=== PATIENT | male | born 1990 | race Caucasian/White ===

== ENCOUNTER 2023-01-14 21:53 | Emergency (ER) | payer OTHER ==
[2023-01-14 22:15] VITALS: TEMP 99.3
[2023-01-14] MEDS ORDERED: KETOROLAC 15 MG/ML 1 ML VIAL IVP STA (22:26)
[2023-01-14] MEDS ORDERED: ONDANSETRON 4 MG/2 ML VIAL IVP STA (22:26)
[2023-01-14] MEDS ORDERED: SODIUM CHLORIDE 0.9% 2,000 ML IV STA (22:26)
[2023-01-14 22:57] LABS: Basophils % (A) 1 %; Eosinophils # (A) 0.3 k/uL (0-0.7); Eosinophils % (A) 3 %; HCT 46.3 % (39.0-53.0); Lymphocytes # (A) 2.8 k/uL (1.0-4.8); Lymphocytes % (A) 32 %; MCH 32.3 pg (25.0-35.0); MCHC 34.7 g/dL (31.0-37.0); MCV 93.2 fL (80.0-100.0); Mean Platelet Volume 7.4; Monocytes # (A) 0.6 k/uL (0-1.0); Monocytes % (A) 7 %; Neutrophils # (A) 4.7 k/uL (1.3-7.7); Neutrophils % (A) 54 %; Platelet Count 243 k/uL (150-450); RBC 4.97 m/uL (4.30-5.90); RDW 11.9 % (11.5-15.5); WBC 8.7 k/uL (3.8-10.6)
[2023-01-14 23:14] LABS: ALT 20 U/L (4-49); AST 26 U/L (17-59); African American GFR (CKD) >90 (>60 ml/min/1.73 sqM); Albumin 4.8 g/dL (3.5-5.0); Alkaline Phosphatase 51 U/L (38-126); Anion Gap 14 mmol/L; Blood Urea Nitrogen 17 mg/dL (9-20); Calcium 9.9 mg/dL (8.4-10.2); Carbon Dioxide 23 mmol/L (22-30); Chloride 104 mmol/L (98-107); Glucose 91 mg/dL (74-99); Lipase 104 U/L (23-300); Non-African American GFR(CKD) >90 (>60 ml/min/1.73 sqM); Potassium 3.9 mmol/L (3.5-5.1); Sodium 141 mmol/L (137-145); Total Bilirubin 0.5 mg/dL (0.2-1.3); Total Protein 7.7 g/dL (6.3-8.2)
[2023-01-14 23:31] LABS: Appearance,Urine Clear (Clear); Bacteria,Urine Occasional /hpf; Bilirubin,Urine Negative (Negative); Blood,Urine Large (Negative); Color,Urine Yellow; Glucose,Urine (UA) Negative (Negative); Hyaline Casts,Urine 13 /lpf (0-2); Ketones,Urine Negative (Negative); Leukocyte Esterase,Urine Negative (Negative); Mucus,Urine Occasional /hpf; Nitrite,Urine Negative (Negative); Protein,Urine Trace (Negative); RBC,Urine >182 /hpf (0-5); Urobilinogen,Urine <2.0 mg/dL (<2.0); WBC,Urine 2 /hpf (0-5)
--- NOTE | 2023-01-15 01:00 | ED ---
Back Pain HPI - General Chief Complaint: Back Pain/Injury Stated Complaint: Kidney Stones Time Seen by Provider: 01/14/23 22:10 Source: patient Limitations: no limitations - History of Present Illness Initial Comments: 32-year-old male presents emergency room in reporting left flank pain which radiates around to his left lower abdomen the pain was sudden onset approximately 1 hour prior to hospital arrival. Pain is so severe that it caused him to have an episode of vomiting. He denies dysuria, hematuria or difficulty voiding. Denies diarrhea, constipation, black or bloody stools. No fevers. No testicular pain or penile discharge. No history of similar pain in the past. States the pain comes in waves. He did not take any pain medicines before coming in. Pain is not reproducible. No other alleviating, precipitating or modifying factors - Related Data Allergies Allergy/AdvReac Type Severity Reaction Status Date / Time No Known Allergies Allergy Verified 01/14/23 22:05 Review of Systems ROS Statement: Those systems with pertinent positive or pertinent negative responses have been documented in the HPI. ROS Other: All systems not noted in ROS Statement are negative. Past Medical History Past Medical History: No Reported History History of Any Multi-Drug Resistant Organisms: MRSA Date of last positivie culture/infection: 2014 MDRO Source:: knee Past Surgical History: No Surgical Hx Reported Past Psychological History: No Psychological Hx Reported Smoking Status: Current every day smoker Past Alcohol Use History: Occasional Past Drug Use History: None Reported General Exam Limitations: no limitations General appearance: alert, in no apparent distress Head exam: Present: atraumatic, normocephalic, normal inspection Eye exam: Present: normal appearance, PERRL, EOMI. Absent: scleral icterus, conjunctival injection, periorbital swelling ENT exam: Present: normal exam, mucous membranes moist Neck exam: Present: normal inspection. Absent: tenderness, meningismus, lymphadenopathy Respiratory exam: Present: normal lung sounds bilaterally. Absent: respiratory distress, wheezes, rales, rhonchi, stridor Cardiovascular Exam: Present: regular rate, normal rhythm, normal heart sounds. Absent: systolic murmur, diastolic murmur, rubs, gallop, clicks GI/Abdominal exam: Present: soft, normal bowel sounds. Absent: distended, tenderness, guarding, rebound, rigid Extremities exam: Present: normal inspection, full ROM, normal capillary refill. Absent: tenderness, pedal edema, joint swelling, calf tenderness Back exam: Present: normal inspection Neurological exam: Present: alert, oriented X3, CN II-XII intact Psychiatric exam: Present: normal affect, normal mood Skin exam: Present: warm, dry, intact, normal color. Absent: rash Course Vital Signs 01/14/23 01/14/23 01/15/23 22:04 23:25 01:09 Temperature 99.3 F Pulse Rate 73 71 64 Respiratory 18 16 18 Rate Blood Pressure 153/84 112/64 109/73 O2 Sat by Pulse 100 99 98 Oximetry Medical Decision Making - Medical Decision Making Was pt. sent in by a medical professional or institution (, PA, GREETING CARD WRITER, urgent care, hospital, or penitentiary...) When possible be specific @ -No Did you speak to anyone other than the patient for history (EMS, parent, family, police, friend...)? What history was obtained from this source @ -No Did you review nursing and triage notes (agree or disagree)? Why? @ -I reviewed and agree with nursing and triage notes Were old charts reviewed (outside hosp., previous admission, EMS record, old EKG, old radiological studies, urgent care reports/EKG's, penitentiary records)? Report findings @ -No old charts were reviewed Differential Diagnosis (chest pain, altered mental status, abdominal pain women, abdominal pain men, vaginal bleeding, weakness, fever, dyspnea, syncope, headache, dizziness, GI bleed, back pain, seizure, CVA, palpatations, mental health, musculoskeletal)? @ -Differential Abdominal Pain Men: Appendicitis, cholecystitis, diverticulosis, ischemic bowel, pancreatitis, hepatitis, UTI, gastroenteritis, AAA, incarcerated hernia, bowel obstruction, constipation, inflammatory bowel, hepatitis, peptic ulcer disease, splenic infarction, perforated viscus, testicular torsion, this is not meant to be an all-inclusive list EKG interpreted by me (3pts min.). @ -Not done X-rays interpreted by me (1pt min.). @ -None done CT interpreted by me (1pt min.). @ -No acute process U/S interpreted by me (1pt. min.). @ -None done What testing was considered but not performed or refused? (CT, X-rays, U/S, labs)? Why? @ -None What meds were considered but not given or refused? Why? @ -None Did you discuss the management of the patient with other professionals (kendra muñiz i.e. , PA, GREETING CARD WRITER, lab, RT, psych nurse, social work supervisor, computer systems auditor, teacher, radiation officer, case liner)? Give summary @ -No Was smoking cessation discussed for >3mins.? @ -No Was critical care preformed (if so, how long)? @ -No Were there social determinants of health that impacted care today? How? (Homelessness, low income, unemployed, alcoholism, drug addiction, transportation, low edu. Level, literacy, decrease access to med. care, snf, rehab)? @ -No Was there de-escalation of care discussed even if they declined (Discuss DNR or withdrawal of care, Hospice)? DNR status @ -No What co-morbidities impacted this encounter? (DM, HTN, Smoking, COPD, CAD, Cancer, CVA, ARF, Chemo, Hep., AIDS, mental health diagnosis, sleep apnea, morbid obesity)? @ -None Was patient admitted / discharged? Hospital course, mention meds given and route, prescriptions, significant lab abnormalities, going to OR and other pertinent info. @ -On arrival the patient is placed into room 27. A thorough history and physical exam was performed. IV access was established. Patient was given Toradol and Zofran as well as a liter bolus of normal saline. CT was performed. He does urinate and has sudden alleviation of his pain. Evaluation of the patient's urine cup demonstrates a 2 mm stone. Urinalysis does demonstrate hematuria. CT is negative for acute process. As the patient's pain is resolved at this time he is discharged home. Instructed that he just passed a kidney stone. He is to follow-up with his primary care doctor to ensure resolution of the hematuria and return for any new or worsening symptoms. Patient agreeable with plan and was discharged in stable condition Undiagnosed new problem with uncertain prognosis? @ -No Drug Therapy requiring intensive monitoring for toxicity (Heparin, Nitro, Insulin, Cardizem)? @ -No Were any procedures done? @ -No Diagnosis/symptom? @ -Acute left flank pain, acute nephrolithiasis - passed Acute, or Chronic, or Acute on Chronic? @ -Acute Uncomplicated (without systemic symptoms) or Complicated (systemic symptoms)? @ -Complicated Side effects of treatment? @ -No Exacerbation, Progression, or Severe Exacerbation? @ -No Poses a threat to life or bodily function? How? (Chest pain, [place], [place], pneumonia, PE, COPD, DKA, ARF, appy, cholecystitis, CVA, Diverticulitis, Homicidal, Suicidal, threat to staff... and all critical care pts) @ -No - Lab Data Result diagrams: 01/14/23 22:33 01/14/23 22:33 Lab Results 01/14/23 01/14/23 01/14/23 Range/Units 22:33 22:33 22:33 WBC 8.7 (3.8-10.6) k/uL RBC 4.97 (4.30-5.90) m/uL Hgb 16.0 (13.0-17.5) gm/dL Hct 46.3 (39.0-53.0) % MCV 93.2 (80.0-100.0) fL MCH 32.3 (25.0-35.0) pg MCHC 34.7 (31.0-37.0) g/dL RDW 11.9 (11.5-15.5) % Plt Count 243 (150-450) k/uL MPV 7.4 Neutrophils % 54 % Lymphocytes % 32 % Monocytes % 7 % Eosinophils % 3 % Basophils % 1 % Neutrophils # 4.7 (1.3-7.7) k/uL Lymphocytes # 2.8 (1.0-4.8) k/uL Monocytes # 0.6 (0-1.0) k/uL Eosinophils # 0.3 (0-0.7) k/uL Basophils # 0.0 (0-0.2) k/uL Sodium 141 (137-145) mmol/L Potassium 3.9 (3.5-5.1) mmol/L Chloride 104 (98-107) mmol/L Carbon Dioxide 23 (22-30) mmol/L Anion Gap 14 mmol/L BUN 17 (9-20) mg/dL Creatinine 0.85 (0.66-1.25) mg/dL Est GFR (CKD-EPI)AfAm >90 (>60 ml/min/1.73 sqM) Est GFR (CKD-EPI)NonAf >90 (>60 ml/min/1.73 sqM) Glucose 91 (74-99) mg/dL Calcium 9.9 (8.4-10.2) mg/dL Total Bilirubin 0.5 (0.2-1.3) mg/dL AST 26 (17-59) U/L ALT 20 (4-49) U/L Alkaline Phosphatase 51 (38-126) U/L Total Protein 7.7 (6.3-8.2) g/dL Albumin 4.8 (3.5-5.0) g/dL Lipase 104 (23-300) U/L Urine Color Yellow Urine Appearance Clear (Clear) Urine pH 5.0 (5.0-8.0) Ur Specific [place] 1.020 (1.001-1.035) Urine Protein Trace H (Negative) Urine Glucose (UA) Negative (Negative) Urine Ketones Negative (Negative) Urine Blood Large H (Negative) Urine Nitrite Negative (Negative) Urine Bilirubin Negative (Negative) Urine Urobilinogen <2.0 (<2.0) mg/dL Ur Leukocyte Esterase Negative (Negative) Urine RBC >182 H (0-5) /hpf Urine WBC 2 (0-5) /hpf Urine Bacteria Occasional H (None) /hpf Hyaline Casts 13 H (0-2) /lpf Urine Mucus Occasional H (None) /hpf Disposition Clinical Impression: Flank pain, Kidney stone Disposition: HOME SELF-CARE Condition: Stable Instructions (If sedation given, give patient instructions): Kidney Stones (ED) Additional Instructions: Please take Motrin or Tylenol for any residual back pain. I will call you with any abnormal results Is patient prescribed a controlled substance at d/c from ED?: No Referrals: None,Stated [Primary Care Provider] - 1-2 days Time of Disposition: 00:59
[2023-01-15 01:17] VITALS: BP 109/73; PULSE 64; RESP 18
--- NOTE | 2023-01-15 01:48 | CT ---
EXAM: CT Abdomen and Pelvis Without Intravenous Contrast CLINICAL HISTORY: ITS.REASON CT Reason: abdominal pain TECHNIQUE: Axial computed tomography images of the abdomen and pelvis without intravenous contrast. CTDI is 6.9 mGy and DLP is 418 mGy-cm. This CT exam was performed using one or more of the following dose reduction techniques: automated exposure control, adjustment of the mA and/or kV according to patient size, and/or use of iterative reconstruction technique. COMPARISON: No relevant prior studies available. FINDINGS: ABDOMEN: Liver: Unremarkable. Gallbladder and bile ducts: Unremarkable. Pancreas: Unremarkable. Spleen: Unremarkable. Adrenals: Unremarkable. Kidneys and ureters: Unremarkable. No obstructing stones. No hydronephrosis. Stomach and bowel: Unremarkable. PELVIS: Appendix: No findings to suggest acute appendicitis. Bladder: Unremarkable. Reproductive: Unremarkable as visualized. ABDOMEN and PELVIS: Intraperitoneal space: Unremarkable. No free air. No significant fluid collection. Bones/joints: No acute fracture. Soft tissues: Unremarkable. Vasculature: Unremarkable. Lymph nodes: Unremarkable. IMPRESSION: 1. No acute process within the abdomen or pelvis.
== END 2023-01-15 01:10 | disposition home or self-care (01) ==
LOC: EC 21:53
DX: N20.0 Calculus of kidney (principal); F17.200 Nicotine dependence, unspecified, uncomplicated
CPT/HCPCS: 36415; 80053; 83690; 85025; 81001; 74176; 99284; 96374; 96375; 96361; J2405; J1885